=== PATIENT | male | born 1975 | race Caucasian/White ===

== ENCOUNTER → 2020-09-27 | Day surgery (SDC) | payer OTHER ==
[~2020-09-27] MED LIST: BACLOFEN10 MG PO; CHLORTHALIDONE50 MG PO; COZAAR100 MG PO; CYMBALTA 30MG C30 MG PO; GABAPENTIN600 MG PO; JARDIANCE25 MG PO; K-DUR20 MEQ PO; METFORMIN HCL500 MG PO; NORVASC 10MG TA10 MG PO; NOVOLOG VI100 UNIT/1 IJ; PERCOCET 5-3251 EACH PO; TRULICITY1.5 MG/0.5 IJ
[2020-09-27 08:43] LABS: HCT 45.3 % (42.0-52.0); HGB 15.4 g/dl (13.2-18.0); MCH 28.5 pg (25.0-31.0); MCV 83.9 fL (78.0-100.0); MPV 9.9 fL (6.0-9.5); RBC 5.4 M/uL (4.70-6.00); RDW 13.1 % (11.5-14.0)
[2020-09-27 09:07] LABS: ALBUMIN 3.5 g/dL (3.4-5.0); BILIRUBIN - TOTAL 0.8 mg/dL (0.2-1.0); BUN/CREAT RATIO (CALC) 33.3 RATIO; CREATININE 0.66 mg/dL (0.67-1.17); GLOBULIN (CALCULATION) 4.1 g/dL; POTASSIUM 3.5 mmol/L (3.5-5.1); TOTAL PROTEIN 7.6 g/dL (6.4-8.2)
== END | disposition home or self-care (01) ==
LOC: FAS 07:46
PROVIDERS: Orthopaedic Surgery
DX: M75.112 Incomplete rotator cuff tear or rupture of left shoulder, not specified as traumatic (principal); M75.52 Bursitis of left shoulder; M25.812 Other specified joint disorders, left shoulder; G47.30 Sleep apnea, unspecified; E78.00 Pure hypercholesterolemia, unspecified; E11.9 Type 2 diabetes mellitus without complications; M19.90 Unspecified osteoarthritis, unspecified site; I10 Essential (primary) hypertension; Z99.81 Dependence on supplemental oxygen; Z98.890 Other specified postprocedural states; Z86.16 Personal history of COVID-19
CPT/HCPCS: 36415; 80053; J0171; J0690; J1100; J1885; J2250; J2405; J2704; J2795; J3010; J7120

== ENCOUNTER → 2022-04-16 | Emergency (ER) | payer OTHER ==
[~2022-04-16] MED LIST changes: +CYCLOBENZAPRINE10 MG PO; +NORCO 5-325 TA1 EACH PO
== END | disposition home or self-care (01) ==
LOC: FER 15:25
DX: M54.41 Lumbago with sciatica, right side (principal); I10 Essential (primary) hypertension; E11.9 Type 2 diabetes mellitus without complications
CPT/HCPCS: 96372; 99283; J1100; J1170; J1885